=== PATIENT | male | born 1980 | race Caucasian/White ===

== ENCOUNTER → 2017-09-26 | Outpatient (REF) ==
--- NOTE | 2017-09-26 09:03 | DI ---
EXAM: PA and lateral views of the chest HISTORY: Employment screening COMPARISON: Chest x-ray 10/25/2016 and 03/04/2015 FINDINGS: The cardiomediastinal silhouette is normal. There is no pneumothorax or pleural effusion. There is no consolidation, nodule or mass. The osseous structures are unchanged. IMPRESSION: No acute cardiopulmonary process
== END ==
LOC: RAD 08:40
DX: Z02.89 Encounter for other administrative examinations (principal)